=== PATIENT | female | born 1950 | race Caucasian/White ===

== ENCOUNTER 2019-11-29 15:04 | Outpatient (REF) | payer MEDICARE, MEDICAID, SELFPAY | END 2019-11-29 15:05 | disposition home or self-care (01) | LOC: HO.BBR 15:04 | PROVIDERS: PCP Internal Medicine; Visit Provider Internal Medicine Medical Oncology | DX: D75.1 Secondary polycythemia (principal) | CPT/HCPCS: 85018; 99195 ==

== ENCOUNTER 2019-12-05 17:00 | Outpatient (REF) | payer MEDICARE, MEDICAID, SELFPAY ==
--- NOTE | 2019-12-05 17:03 | MM_ITS ---
EXAMINATION: MM SCREENING DIGITAL BREAST TOMOSYNTHESIS, BILATERAL CLINICAL INFORMATION: Screening. Asymptomatic. COMPARISON: Mammography: September 14, 2018 and studies dating back to September 08, 2010 TECHNIQUE: Digital breast tomosynthesis is performed in both the craniocaudal and mediolateral oblique views along with computer-aided detection (CAD). Synthesized 2D images are generated from the tomosynthesis. FINDINGS: There are scattered areas of fibroglandular density (ACR BI-RADS breast composition Category b). There are no significant masses, abnormal calcifications, or other abnormalities. There are some stable circumscribed densities again seen within the right breast. MM/MM tomosynthesis screening BI IMPRESSION: There are no significant changes from prior study. ASSESSMENT: BI-RADS 1: Negative RECOMMENDATION: Routine annual mammography screening. This patient's information was entered into a reminder system with a target due date for their next mammogram.
== END 2019-12-05 17:01 | disposition home or self-care (01) ==
LOC: HO.MAMMO 17:00
PROVIDERS: Visit Provider Internal Medicine Medical Oncology
DX: Z12.31 Encounter for screening mammogram for malignant neoplasm of breast (principal)
CPT/HCPCS: 77063; 77067

== ENCOUNTER 2019-12-24 13:32 | Outpatient (REF) | payer MEDICARE, MEDICAID, SELFPAY ==
[2019-12-24 16:41] LABS: Basophils Absolute Auto 0.1 X10*3/uL (0.0-0.2); Basophils Percent Auto 1.4 % (0-2); Eosinophils Absolute Auto 0.2 X10*3/uL (0.0-0.4); Hematocrit 43.3 % (37-47); Hemoglobin 13.8 g/dl (12.0-16.0); Imm Gran Abs Auto 0.03 X10*3/uL (0.00-0.03); Imm Gran Pct Auto 0.4 % (0.0-0.4); Lymphocytes Percent Auto 26.7 % (20-40); MANUAL DIFF FLAG NO; Mean Corpuscular HGB Conc 31.9 g/dl (31.0-35.0); Mean Corpuscular Hemoglobin 25.4 pg (27.0-33.0); Mean Corpuscular Volume 79.7 fL (80-98); Mean Platelet Volume 10.9 fL (9.4-12.3); Monocytes Absolute Auto 0.7 X10*3/uL (0.1-1.2); Monocytes Percent Auto 9.2 % (2-11); Neutrophils Absolute Auto 4.3 X10*3/uL (2.0-8.3); Neutrophils Percent Auto 59.3 % (45-73); Platelet Count 238 X10*3/uL (160-400); Red Blood Count 5.43 X10*6/uL (4.20-5.50); Red Cell Distribution Width 14.9 % (11.0-16.0); White Blood Count 7.3 X10*3/uL (4.8-10.8)
[2019-12-24 16:48] LABS: Prothrombin Time 11.3 SEC (10.8-13.0)
[2019-12-24 17:07] LABS: Anion Gap 13 (12-20); Blood Urea Nitrogen 22 mg/dL (9-16); Calcium 9.7 mg/dL (8.4-10.2); Carbon Dioxide 32 mmol/L (22-29); Chloride 102 mmol/L (96-108); Estimated Glomerular Filt Rate > 60; Glucose Random 81 mg/dL (60-115); Potassium 3.9 mmol/l (3.3-5.1); Sodium 143 mmol/L (135-145)
[2019-12-24 17:25] LABS: Free T4 (Free Thyroxine) 1.12 ng/dL (0.71-1.85); Thyroid Stimulating Hormone 0.09 uIU/mL (0.32-4.0)
[2019-12-25 08:07] LABS: Triiodothyronine T3 Free 4.2 pg/mL (2.3-4.2)
== END 2019-12-24 13:33 | disposition home or self-care (01) ==
LOC: HO.HMGCLDS 13:32
PROVIDERS: PCP Internal Medicine; Visit Provider Internal Medicine Cardiovascular Disease
DX: I42.9 Cardiomyopathy, unspecified (principal); E78.2 Mixed hyperlipidemia; E05.90 Thyrotoxicosis, unspecified without thyrotoxic crisis or storm
CPT/HCPCS: 36415; 80048; 84439; 84443; 84481; 85025; 85610

== ENCOUNTER 2019-12-28 14:02 | Outpatient (REF) | payer MEDICARE, MEDICAID, SELFPAY | END 2019-12-28 14:03 | disposition home or self-care (01) | LOC: HO.BBR 14:02 | PROVIDERS: Visit Provider Internal Medicine Medical Oncology | DX: D75.1 Secondary polycythemia (principal) | CPT/HCPCS: 36415; 85018; 99195 ==

== ENCOUNTER 2020-01-28 13:50 | Outpatient (REF) | payer MEDICARE, MEDICAID, SELFPAY | END 2020-01-28 13:51 | disposition home or self-care (01) | LOC: HO.BBR 13:50 | PROVIDERS: Visit Provider Internal Medicine Medical Oncology | DX: D75.1 Secondary polycythemia (principal) | CPT/HCPCS: 36415; 85018; 99195 ==

== ENCOUNTER 2020-02-05 15:06 | Emergency (ER) | payer MEDICARE, MEDICAID, SELFPAY ==
--- NOTE | 2020-02-05 15:20 | PC.NURSE ---
[facility] OFFICE CALLED @ REQUEST OF DR GONZALES @ 15:20 ANGEL ANSWERS, TAKE PT INFO, CALL BACK NUMBER AND ASKS TO SPEAK WITH DR JANET GONZALES TAKES OVER CALL RIGHT AWAY
--- NOTE | 2020-02-05 15:35 | PC.NURSE ---
FAMILY PRESENT AT BEDSIDE
--- NOTE | 2020-02-05 15:40 | PC.NURSE ---
[facility] notified of pt, Ref #[id number]. At this time pt on hold for possible tissue donation
--- NOTE | 2020-02-05 15:42 | PC.NURSE ---
MED EXAM[facility] HAS DECLINED CASE #[id number] JUS HENRY
--- NOTE | 2020-02-05 15:53 | PC.NURSE ---
FAMILY GIVES GR[facility] HOME IN [place] @ THIS TIME
--- NOTE | 2020-02-05 17:18 | ED.GENADULT ---
HPI - General Adult General Chief complaint: Cardiac Arrest/CPR Stated complaint: CARDIAC ARREST, ASYSTOLE Time Seen by Provider: 02/05/20 15:21 Source: family and EMS History of Present Illness HPI narrative: 69-year-old female who was brought to the emergency department in cardiac arrest. Information came from EMS and from the patient's family. According to the patient's , the patient had been feeling tired over the past 1-2 days. She had no specific complaints. The family believes that she was in her room playing a computer game. She was seen 2 hours prior to being found lying on the bedroom floor. She was unresponsive and 911 was called. First responders placed an AED which advised no shock x3. CPR was started. When the paramedics arrived, the patient was found to be asystolic. The paramedics continued with CPR, lry-[id number]-[id number] ventilation and ACLS protocols for approximately 25-30 minutes prior to arrival. The patient received 7 rounds epinephrine. Throughout the entire resuscitation the patient remained asystolic. On presentation to the emergency department, the patient's initial rhythm was asystole. Given the prolonged resuscitative time with asystole that I felt that no further resuscitation in the emergency department was warranted and the patient was pronounced . Time of was 2:53 p.m. Related Data Home Medications Medication Instructions Recorded Confirmed aspirin 81 mg tablet,delayed 81 mg PO DAILY 01/18/20 01/18/20 release flu vacc [id number] 6mos up(PF) ml IM 01/18/20 01/18/20 losartan 25 mg tablet 25 mg PO DAILY 01/18/20 01/18/20 magnesium oxide 400 mg (241.3 mg 400 mg PO DAILY 01/18/20 01/18/20 magnesium) tablet metoprolol tartrate 50 mg tablet 75 mg PO BID tab 01/18/20 01/18/20 rosuvastatin 40 mg tablet 40 mg PO DAILY 01/18/20 01/18/20 Previous Rx's Medication Instructions Recorded hydrochlorothiazide 25 mg tablet 25 mg PO DAILY #90 tab 01/01/20 Allergies Allergy/AdvReac Type Severity Reaction Status Date / Time Sulfa (Sulfonamide Allergy Severe THROAT Unverified 10/25/19 15:28 Antibiotics) CLOSED [SULFA (SULFONAMIDE ANTIBIOTICS)] codeine [CODEINE] Allergy Intermediate N/V Verified 01/17/20 10:24 latex [LATEX] Allergy Intermediate RASH/SWELLI Unverified 10/25/19 15:28 NG nickel [NICKEL] Allergy Intermediate RASH Unverified 10/25/19 15:28 prednisone [PREDNISONE] Allergy Intermediate REDNESS IN Verified 01/17/20 10:24 FACE, CHEST, NECK dexamethasone [DEXAMETHASONE] Allergy Unknown HEADACHES Unverified 10/25/19 15:28 meloxicam Allergy Unknown Unknown Verified 01/17/20 10:24 shellfish Allergy Unknown vomiting, Verified 01/17/20 10:24 SOB sulfadiazine Allergy Unknown unknown Verified 01/17/20 10:24 Trace Metals Allergy Unknown unknown Verified 01/17/20 10:24 amoxicillin [Augmentin] AdvReac Unknown diarrhea Verified 01/17/20 10:24 clavulanic acid [Augmentin] AdvReac Unknown diarrhea Verified 01/17/20 10:24 adhesives Allergy Unknown blisters Uncoded 10/24/18 00:00 seasonal Allergy Unknown unknown Uncoded 01/17/20 10:24 Review of Systems Review of Systems: Yes Unobtainable due to mental condition [facility] Past Medical History Medical History (Updated 02/05/20 @ 17:45 by Jaya Westfall MD) Breast CA Erythrocytosis History of mammogram HTN (hypertension) Non-ischemic cardiomyopathy NSVT (nonsustained ventricular tachycardia) Surgical History (Updated 01/17/20 @ 16:28 by Christal Norris CMA) H/O colonoscopy No pertinent past surgical history S/P SYDNEY (total abdominal hysterectomy) Family History Family History (Updated 01/17/20 @ 10:33 by Nini Price Adeline, OPTICAL ADVISOR) Mother Myocardial infarction Father No problems noted. Brother No problems noted. Social History Social History (Updated 01/18/20 @ 12:42 by Christal Norris CMA) Alcohol intake: never Smoking Status: Current every day smoker Advance Directives: No Advance Directives Information Provided: Yes Physical Exam Const: General: other (Unresponsive, CPR in progress, cyanotic) HENMT: Head: Yes normal to inspection, Yes normocephalic and Yes atraumatic Ears: hearing grossly normal bilaterally General nose exam: Normal external nose present Face and sinus: Yes normal facial exam Eyes: General: appearance normal, both eyes and all related structures Periorbital: periorbital findings normal Eyelids: Yes eyelids normal Pupils: Other pupil findings (Pupils are fixed and dilated) Neck: Neck: Yes normal visual inspection Chest: Chest palpation & inspection: normal inspection of the chest Resp: Effort & Inspection: other (No spontaneous respirations, respirations assisted by bag-valve mask) Cardio: Rate: Other (No heartbeat heard) GI: Inspection: Yes normal to inspection Back/Spine/Pelvis: Back: other Skin: General skin exam: other (Sinuses) Neuro: General: other (No spontaneous movement) Extrem: General: Yes other (No trauma) Course Course Course Narrative: 69-year-old female who presented to the emergency department for cardiac arrest. The 1st responders found the patient in asystole and attempted resuscitation for approximately 25 minutes with no ROSC. The patient remained asystolic throughout the entire resuscitation. On presentation to the emergency department the patient was found to be in asystole and she was pronounced at 2:53 p.m. I did discuss the issues with her family. Patient was also presented to the hospitalist medical director and the hospitalist medical director declined jurisdiction of the case. property insurance claims examiner was Nini Mota, case number is [id number]. Critical Care Time Critical Care Time Total Critical Care Time: 35 Attestation: Critical Care: The patient was critically ill with a high probability of imminent or life threatening deterioration. I spent greater than 30 minutes of discontinuous time evaluating the patient,delivering critical care at the bedside, discussing and evaluating pertinent data, and documenting the record. Critical care time does not include time spent performing separately billable procedures or teaching. Total time spent performing critical care was 35 minutes. Discharge Plan Discharge Clinical Impression: Cardiac asystole, Patient Disposition: Prescriptions: No Action hydrochlorothiazide 25 mg tablet 25 mg PO DAILY Qty: 90 RF: 3 losartan 25 mg tablet 25 mg PO DAILY RF: 0 magnesium oxide 400 mg (241.3 mg magnesium) tablet 400 mg PO DAILY RF: 0 rosuvastatin 40 mg tablet 40 mg PO DAILY RF: 0 aspirin 81 mg tablet,delayed release (DR/EC) 81 mg PO DAILY RF: 0 Fluzone Quad (PF) 60 mcg (15 mcg x 4)/0.5 mL syringe IM RF: 0 metoprolol tartrate 50 mg tablet 75 mg PO BID RF: 0
== END 2020-02-05 17:00 | disposition expired ==
PROVIDERS: Emergency Provider Emergency Medicine Emergency Medical Services
DX: I46.9 Cardiac arrest, cause unspecified (principal)